=== PATIENT | female | born 1945 | race Caucasian/White ===

== ENCOUNTER 2017-05-20 13:34 | Emergency (ER) | payer OTHER ==
[2017-05-20 13:39] VITALS: BP 116/64; PULSE 74; TEMP 98.7; BMI 20.7
[2017-05-20] MEDS ORDERED: DIPHTH,PERTUSS(ACELL),TET VAC 0.5 ML VIAL IM ONE (14:22)
--- NOTE | 2017-05-20 14:22 | PDOC ---
History of Present Illness - General History Source: Patient Exam Limitations: No Limitations - History of Present Illness Initial Comments: 05/20/17 14:40 The patient is a 71 year old female, with a significant past medical history of anemia, asthma, heart murmurs, endometriosis/adhesions, and fatty liver disease , who presents to the emergency department complaining of a cat bite earlier this afternoon. The patient reports she was at home giving her cat a bath, when suddenly the cat bit her left hand near her thumb. The patient reports shes bathed the cat in the past without a problem, but recently the cat has grown and is more resistant to showering. The patient denies any allergies to cats. She does not recall when her last tetanus shot was. Patient reports the cat is up to date with her vaccinations. She denies any fever, chills, hives, or edema at site of the bite. She denies any recent travel or sick contacts. Allergies: Doxycycline, Penicillins, Sulfa (Sulfonamide Antibiotics) Past Surgical History: Right Arm Social History: Non smoker. No ETOH or drug use <Heladio Ascencio - Last Filed: 05/20/17 14:39> <Tarah Gunderson - Last Filed: 05/20/17 15:09> - General Chief Complaint: Bite Stated Complaint: CAT BITE TO LEFT THUMB Time Seen by Provider: 05/20/17 14:04 Past History <Heladio Ascencio - Last Filed: 05/20/17 14:39> - Past Medical History Anemia: Yes Asthma: Yes (NO RECENT ATTACK) Cancer: No Cardiac Disorders: Yes (HX.HEART MURMUR,RHEUMATIC) CVA: No COPD: No CHF: No Dementia: No Diabetes: No GI Disorders: No Disorders: Yes (ADHESIONS,ENDOMETROSIS) HTN: No Hypercholesterolemia: No Liver Disease: Yes (FATTY LIVER) Seizures: No Thyroid Disease: No - Surgical History Abdominal Surgery: No Appendectomy: No Cardiac Surgery: No Cholecystectomy: No Lung Surgery: No Neurologic Surgery: No Orthopedic Surgery: Yes (RIGHT ARM SURGERY,RIGHT) - Psycho/Social/Smoking Cessation Hx Suicidal Ideation: No Smoking History: Never smoked Have you smoked in the past 12 months: No Information on smoking cessation initiated: No Hx Alcohol Use: No Drug/Substance Use Hx: No Substance Use Type: None Hx Substance Use Treatment: No <Tarah Gunderson Last Filed: 05/20/17 15:09> - Past Medical History Allergies/Adverse Reactions: Allergies Allergy/AdvReac Type Severity Reaction Status Date / Time doxycycline Allergy Verified 05/20/17 13:40 Penicillins Allergy Verified 05/20/17 13:40 Sulfa (Sulfonamide Allergy Verified 05/20/17 13:40 Antibiotics) Home Medications: Ambulatory Orders Calcium 1 tab PO DAILY 01/28/12 Lorazepam [Ativan] 0.25 mg PO ASDIR 01/28/12 Monon-3/Dha/Epa/Fish Oil [Fish Oil 1,000 mg Softgel] 1 cap PO DAILY 01/28/12 Beclomethasone Dipropionate [Qvar] 8.7 gm IH ASDIR 05/20/17 Ciprofloxacin [Cipro -] 500 mg PO Q12H #10 tablet 05/20/17 Clindamycin [Cleocin -] 450 mg PO Q8H #45 capsule 05/20/17 Multivitamin with Minerals [Icaps Plus] 1 each PO DAILY 05/20/17 Review of Systems - Review of Systems Able to Perform ROS?: Yes Comments:: 05/20/17 14:40 GENERAL/CONSTITUTIONAL: No fever or chills. No weakness. HEAD, EYES, EARS, NOSE AND THROAT: No change in vision. No ear pain or discharge. No sore throat. CARDIOVASCULAR: No chest pain or shortness of breath. RESPIRATORY: No cough, wheezing, or hemoptysis. GASTROINTESTINAL: No nausea, vomiting, diarrhea or constipation. GENITOURINARY: No dysuria, frequency, or change in urination. MUSCULOSKELETAL: No joint or muscle swelling or pain. No neck or back pain. SKIN: Yes: +open cat bite to left hand. No rash NEUROLOGIC: No headache, vertigo, loss of consciousness, or change in strength/ sensation. ENDOCRINE: No increased thirst. No abnormal weight change. HEMATOLOGIC/LYMPHATIC: No anemia, easy bleeding, or history of blood clots. ALLERGIC/IMMUNOLOGIC: No hives or skin allergy. <Heladio Ascencio - Last Filed: 05/20/17 14:39> *Physical Exam - Vital Signs Last Vital Signs Temp Pulse Resp BP Pulse Ox 98.7 F 74 18 116/64 96 05/20/17 13:37 05/20/17 13:37 05/20/17 13:37 05/20/17 13:37 05/20/17 13:37 <Heladio Ascencio - Last Filed: 05/20/17 14:39> - Vital Signs Last Vital Signs Temp Pulse Resp BP Pulse Ox 98.7 F 74 18 116/64 96 05/20/17 13:37 05/20/17 13:37 05/20/17 13:37 05/20/17 13:37 05/20/17 13:37 - Physical Exam Comments: GENERAL: Awake, alert, and fully oriented, in no acute distress HEAD: No signs of trauma EYES: PERRLA, EOMI, sclera anicteric, conjunctiva clear ENT: Auricles normal inspection, hearing grossly normal, nares patent, oropharynx clear without exudates. Moist mucosa EXTREMITIES: Normal range of motion. No clubbing or cyanosis. No cords, erythema , or tenderness. NEUROLOGICAL: Cranial nerves II through XII grossly intact. Normal speech, normal gait SKIN: Warm, Dry, normal turgor, no rashes. +2 puncture garcia to the L thumb. No active bleeding. +Mild surrounding edema. No induration. <Tarah Gunderson - Last Filed: 05/20/17 15:09> Medical Decision Making - Medical Decision Making Pt with multiple antibiotic allergies, therefore best combination I could select was fluoroquinolone and clinda. She has penicillin allergy and sulfa allergy. Would prefer to avoid a quinolone if at all possible, however, no other options available that do not cross into her allergies. Given first dose in ED. Five day course total. <Tarah Gunderson - Last Filed: 05/20/17 15:09> *DC/Admit/Observation/Transfer - Attestations Scribe Attestion: 05/20/17 14:41 Documentation prepared by Heladio Ascencio, acting as director of medical staff services for Tarah Gunderson MD. <Heladio Ascencio - Last Filed: 05/20/17 14:39> - Discharge Dispostion Admit: No <Tarah Gunderson - Last Filed: 05/20/17 15:09> Diagnosis at time of Disposition: Cat bite of hand Qualifiers: Encounter type: initial encounter Laterality: left Qualified Code(s): S61.452A - Open bite of left hand, initial encounter - Discharge Dispostion Disposition: HOME Condition at time of disposition: Stable - Prescriptions Prescriptions: Ciprofloxacin [Cipro -] 500 mg PO Q12H #10 tablet Clindamycin [Cleocin -] 450 mg PO Q8H #45 capsule - Patient Instructions Printed Discharge Instructions: DI for Animal Bites
[2017-05-20] MEDS ORDERED: CLINDAMYCIN HCL 150 MG CAPSULE (FP) PO ONE (14:38)
[2017-05-20] MEDS ORDERED: CIPROFLOXACIN 500 MG TABLET (RESTRICTED TO ID) PO ONE (14:38)
[2017-05-20] MEDS ORDERED: CLINDAMYCIN HCL 150 MG CAPSULE (FP) ONE (14:45)
[2017-05-20] MEDS ORDERED: CIPROFLOXACIN 250 MG TABLET (RESTRICTED TO ID) PO ONE (14:45)
== END 2017-05-20 14:53 | disposition home or self-care (01) ==
LOC: FER 13:34
PROC: 3E0234Z Introduction of Serum, Toxoid and Vaccine into Muscle, Percutaneous Approach (ICD-10-PCS; principal; 2017-05-20)
DX: S61.452A Open bite of left hand, initial encounter (principal); W55.01XA Bitten by cat, initial encounter; Y93.E1 Activity, personal bathing and showering; Y92.9 Unspecified place or not applicable; K76.0 Fatty (change of) liver, not elsewhere classified; R01.1 Cardiac murmur, unspecified; J45.909 Unspecified asthma, uncomplicated
CPT/HCPCS: 90471; 99282-25